=== PATIENT | female | born 1975 | race Caucasian/White ===

== ENCOUNTER → 2018-02-06 13:35 | Outpatient (CLI) | payer BC, SELFPAY ==
--- NOTE | 2018-02-06 13:41 | US_ITS ---
US thyroid HISTORY: Enlarged thyroid gland, dysphasia ITS.REASON: THROMEGLY ORDERING PHYSICIAN: Rosalina Cohen PATIENT AGE: 42 years Comparison: None FINDINGS: The right lobe is 4.4 x 1.3 x 1.2 cm with mostly homogeneous echogenicity. 4 x 2 mm hypoechoic nodule lower pole 3 x 2 mm hypoechoic nodule lower pole The left lobe is 3.9 x 1.3 x 1.5 cm. 3 x 3 mm hyperechoic nodule mid to lower region 3 mm hypoechoic nodule lower pole 3 mm hypoechoic nodule lower pole Unremarkable isthmus. IMPRESSION: Bilateral 4 mm or less thyroid nodules with low level of suspicion for malignancy with mild prominence of the thyroid gland. Consider 6 month follow-up to confirm stability
== END ==
PROVIDERS: Family Provider Family Medicine; PCP Nurse Practitioner; Visit Provider Nurse Practitioner
DX: E04.9 Nontoxic goiter, unspecified (principal)
CPT/HCPCS: 76536

== ENCOUNTER → 2018-09-20 08:14 | Outpatient (CLI) | payer BC, SELFPAY ==
--- NOTE | 2018-09-20 08:17 | US_ITS ---
US aorta HISTORY: Screening for aneurysm ITS.REASON: CHRONIC FATIGUE, PALPATATIONS, FHX CARDIAC DISORDER,AAA COMPARISON: FINDINGS No evidence of abdominal aortic aneurysm. Mid abdominal aorta measures up to 13 mm. Proximal common iliacs are unremarkable. IMPRESSION: No evidence of abdominal aortic aneurysm
--- NOTE | 2018-09-20 08:17 | US_ITS ---
US thyroid HISTORY: Follow-up thyroid nodules ITS.REASON: CHRONIC FATIGUE, PALPATATIONS, FHX CARDIAC DISORDER,AAA ORDERING PHYSICIAN: Rosalina Cohen APRN PATIENT AGE: 43 years Comparison: 02/06/2018 FINDINGS The right lobe is 3. #1.1 x 1.4 cm. A 3 mm hypoechoic nodule is present in the lower pole laterally unchanged. 2 mm hypoechoic nodule within the lower pole The left lobe is 4.2 x 1.1 x 1.3 cm. There are 2 hypoechoic nodules in the lower pole measuring 2 and 3 mm The isthmus has an unremarkable appearance. IMPRESSION: Small bilateral thyroid nodules with low level of suspicion for malignancy. Not significant change
--- NOTE | 2018-09-20 09:28 | CA_ITS ---
PROCEDURE: 2-D M-mode and color Doppler study INDICATIONS FOR THE TEST: Chest pain+ COPD Heart Murmur Tobacco Smoking Palpitations Fatigue+ Syncope Edema Hypertension Diabetes Mellitus Rheumatic Fever SOB DEVRIES Obesity Hyperlipidemia Family History HD Additional History PALP, FM HX ANEURYSM PATIENT INFORMATION HEIGHT: 63 WEIGHT:161 GENDER: Female B/P:118/70 2-D/M-MODE INTERPRETATION: 2-D MEASUREMENTS OBSERVED VALUES IN CMS Right Ventricular Dimension (RVDd) 2.3 Interventricular Septum (Thickness)(IVsd) 1.2 Left Ventricular Internal Dimensions(LVIDd) 3.9 Left Ventricular Posterior Wall (Thickness)(LVPWd) 1.0 Aortic Root 3.0 Aortic Cusp Separation 1.9 Left Atrial Dimensions (LAD) 3.1 2D 1. Left atrium is normal size, left ventricle is normal size, there is no concentric left ventricular hypertrophy, visually estimated ejection fraction 55% with no regional wall motion abnormality. 2. The right atrium and right ventricle are normal size and contractility. 3. The aortic, mitral and tricuspid valvular grossly normal. 4. The pulmonic valve is poorly visualized. 5. No significant pericardial effusion noted. DOPPLER INTERROGATION: Doppler interrogation of the aortic, mitral and tricuspid valvular presence of mild mitral and tricuspid regurgitation, tricuspid regurgitation jet velocity is inadequate for calculation of the right ventricular systolic pressure, diastolic parameters are within normal range. CONCLUSION: 1. Normal left ventricular size, preserved left ventricular systolic function, visually estimated ejection fraction 55% with no regional wall motion abnormality, diastolic parameters are within normal range. 2. Mild mitral and tricuspid regurgitation 3. No significant pericardial effusion noted.
== END ==
PROVIDERS: PCP Nurse Practitioner; Visit Provider Nurse Practitioner
DX: R00.2 Palpitations (principal); R53.82 Chronic fatigue, unspecified; E04.9 Nontoxic goiter, unspecified; I71.4 Abdominal aortic aneurysm, without rupture; Z82.49 Family history of ischemic heart disease and other diseases of the circulatory system
CPT/HCPCS: 76536; 76770; 93017; 93306

== ENCOUNTER → 2018-10-30 07:19 | Outpatient (CLI) | payer BC, SELFPAY ==
--- NOTE | 2018-10-30 09:16 | NM_ITS ---
CARDIOLITE SPECT MYOCARDIAL PERFUSION LEXISCAN, REST AND STRESS: History: Chest pain, shortness of breath, family history abnormal treadmill stress test Procedure: Patient exercised on Blair protocol 9 minutes, resting heart rate was 62 bpm resting blood pressure 144/79, with exercise maximum heart rate achieved was 1 71 bpm which is greater than 85% of the maximum predicted heart rate and a blood pressure was 170/80. Patient complained of chest pressure in a peak exercise which was relieved with rest. Patient has good exercise capacity achieved 10.1mets of workload on treadmill, the blood pressure response to exercise was adequate. Electrocardiogram: Resting electrocardiogram showed sinus rhythm, with exercise there is less than 1.[address] segment depression noted from the baseline EKG. The EKG portion of the exercise Myoview is negative for ischemia. Cardiac stress and resting SPECT images: Cardiac stress and rest SPECT images were obtained using technetium 99 Myoview 30.2 mCi stress and 10.2 mCi at rest. Gated SPECT further analysis of segmental wall motion and calculation of the ejection fraction also done. Cardiac stress and resting SPECT images show uniform myocardial activity without segmental perfusion abnormality, computer derived ejection fraction is 64% with no regional wall motion abnormality, right ventricle is normal size and contractility. Conclusion: 1. The EKG portion of the exercise Myoview is negative for ischemia, patient has good exercise capacity achieved 10.1mets of workload on treadmill, the blood pressure response to exercise was adequate, test was started shortness of breath patient also complained of chest pain with peak exercise which resolving the resting the recovery. 2. No scintigraphic evidence of reversible ischemia seen at this level of exercise, computer derived ejection fraction is 64% with no regional wall motion abnormality, right ventricle is normal size and contractility.
--- NOTE | 2018-10-30 09:19 | HMH.ITSHM ---
Current Home Medications as stated by this patient Елена Rasheed or patient intake representative. [] CONTROL
== END ==
PROVIDERS: PCP Nurse Practitioner; Visit Provider Internal Medicine
DX: R07.9 Chest pain, unspecified (principal); R53.83 Other fatigue; R94.31 Abnormal electrocardiogram [ECG] [EKG]
CPT/HCPCS: 78452; 93017; A9502

== ENCOUNTER 2020-04-27 10:13 | Emergency (ER) | payer BC, SELFPAY ==
[2020-04-27 10:15] VITALS: BP 143/88; PULSE 91; RESP 14; TEMP 36.7; O2SAT 100; BMI 24.3
--- NOTE | 2020-04-27 11:13 | HMH.EDUTC ---
[facility] [place] Disposition Clinical Impression: Close exposure to COVID-19 virus Disposition: Home, Self-Care Condition on Discharge: Good Instructions: DI for COVID-19 (Suspected or Confirmed ), Preventing the Spread of Coronavirus Discharge Instructions Additional Instructions: self isolate until test results are known if symptoms develop return or be seen by pcp Referrals: Rosalina Cohen APRN [Primary Care Provider] - Time of Disposition: 11:15 Medical Decision Making - Andre Inquiry Pt receiving controlled substance: No Vital Signs: 04/27/20 10:15 Temperature 98.0 F Temperature Source Oral Pulse Rate [Right Brachial] 91 H Respiratory Rate 14 Blood Pressure [Right Arm] 143/88 H Blood Pressure Mean [Right Arm] 106 Blood Pressure Source [Right Arm] Automatic Cuff Blood Pressure Position [Right Arm] Sitting 02 Sat by Pulse Oximetry 100 Oxygen Delivery Method Room Air Orders (Tests/Meds): ORDERS Category Date Time Status Covid-19 Nasal PCR ([facility]) Routine Lab 04/27/20 10:30 Received [facility] [place] HPI - General Chief complaint: Urgent Treatment Center Stated complaint: COVID EXPOSURE Time Seen by Provider: 04/27/20 11:13 Mode of Arrival: Ambulatory Source of Information: Patient Limitations: No Limitations Description of Symptoms (Recalled from Triage Doc. by RN): PATIENT REQUESTING COVID TEST D/T EXPOSURE; DENIES SYMPTOMS HEENT Symptoms (Recalled from RN notes): No Resp Symptoms (Recalled from RN notes): No Skin Symptoms (Recalled from RN notes): No MS Symptoms (Recalled from RN notes): No Functional Status (Recalled from RN notes): WNL - History of Present Illness Provider Complaint: 44 yr old female presents for covid test. pt states she was exposed but denies symptoms. - Related Data Previous Rx's Medication Instructions Recorded amoxicillin 500 mg capsule 500 mg PO Q12H 10 Days #20 cap 06/03/19 Allergies Allergy/AdvReac Type Severity Reaction Status Date / Time No Known Allergies Allergy Verified 06/03/19 10:36 - Worker's Comp Is this a Worker's Comp case?: No [facility] History - Hepatitis A Screen Drug use history?: No High risk sexual behaviors?: No History of sexually transmitted infection?: No Currently employed?: No Childcare worker?: No Do you have indoor plumbing?: Yes Do you have electricity?: Yes Attestation statement:: This patient has been screened for Hepatitis A risk factors. I have reviewed the patient's past medical history: Yes Medical History: Reports:: Gastroesophageal Reflux Disease(GERD) Denies:: Diabetes Mellitus Type 1, Diabetes Mellitus Type 2, Internal Pacemaker, Lung Disease, Seizures Other Medical History: Denies: Blood Transfusion Reaction Other Surgeries: Yes: No Previous Surgery, Other. No: Pacemaker - Social History Smoking Status: Never smoker Alcohol Intake: never Substance Use Type: denies use Occupational Status: other Housing: house Household Members: family Family Hx:: Cancer, Hypertension, Stroke, Coronary Artery Disease, Heart Attack Comment: Sister-[place]@50. Father-HTN. Mother-Cancer ROS Obtained: Yes Systems reviewed as appropriate & no additional complaints - Constitutional Constitutional: Reports system reviewed and no additional complaints, except as docu, Denies fever(s) - Eyes Eyes: Reports system reviewed and no additional complaints, except as docu, Denies blurry vision - ENT Ears, Nose, Mouth, and Throat: Reports system reviewed and no additional complaints, except as docu, Denies bleeding gums - Cardiovascular Cardiovascular: Reports system reviewed and no additional complaints, except as docu, Denies chest pain - Respiratory Respiratory: Yes system reviewed and no additional complaints, except as docu, No shortness of breath - Gastrointestinal Gastrointestingal: Reports: system reviewed and no additional complaints, except as docu. Denies: belching - Genitourinary Female Genitourinary: Reports system revi
[2020-04-27 11:17] VITALS: BP 143/88; PULSE 91; RESP 14; TEMP 36.7; O2SAT 100
--- NOTE | 2020-04-27 18:39 | PC.NURSE ---
patient notified of positive of covid results
== END 2020-04-27 11:20 | disposition home or self-care (01) ==
PROVIDERS: Emergency Provider Nurse Practitioner Family; PCP Nurse Practitioner
DX: U07.1 COVID-19 (principal); K21.9 Gastro-esophageal reflux disease without esophagitis
CPT/HCPCS: 99202; G0463; U0003

== ENCOUNTER → 2020-07-24 12:03 | Outpatient (CLI) | payer BC, SELFPAY | PROVIDERS: PCP Family Medicine; Visit Provider Nurse Practitioner Family | DX: Z20.822 Contact with and (suspected) exposure to COVID-19 (principal) | CPT/HCPCS: U0003 ==

== ENCOUNTER → 2020-09-30 08:02 | Outpatient (POV) | payer BC, SELFPAY | PROVIDERS: Visit Provider Dermatology | DX: Z00.00 Encounter for general adult medical examination without abnormal findings (principal) ==

== ENCOUNTER → 2022-02-09 08:07 | Outpatient (POV) | payer BC, SELFPAY | PROVIDERS: Visit Provider Dermatology | DX: Z00.00 Encounter for general adult medical examination without abnormal findings (principal) ==

== ENCOUNTER 2024-01-16 08:54 | Outpatient (CLI) | payer BC, SELFPAY ==
[2024-01-16 09:39] LABS: Basophils # 0.1 K/mm3 (0-0.2); Eosinophils # 0.1 K/mm3 (0.0-0.4); Hematocrit 45.3 % (37.0-47.0); Hemoglobin 14.8 g/dL (12.2-16.2); Lymphocytes # 1.7 K/mm3 (0.7-4.5); Lymphocytes % 29.7 % (10-50); Mean Corpuscular HGB Conc 32.6 g/dL (31.8-35.4); Mean Corpuscular Hemoglobin 29.8 pg (27.0-31.2); Mean Corpuscular Volume 91.5 fl (81-99); Mean Platelet Volume 7.9 fl (7.4-10.4); Monocytes # 0.3 K/mm3 (0.1-1.0); Monocytes % 5.3 % (1.7-9.3); Neutrophils # 3.7 K/mm3 (1.8-7.8); Neutrophils % 62.9 % (37.0-80.0); Platelet Count 283 K/mm3 (142-424); Red Blood Count 4.96 M/mm3 (4.20-5.40); Red Cell Distribution Width 13.4 % (11.5-17.5); White Blood Count 5.9 K/mm3 (4.8-10.8)
[2024-01-16 10:57] LABS: Albumin Level 4.4 g/dl (3.5-5.0); Chloride 108 mmol/L (98-107); Sodium 141 mmol/L (136-145)
[2024-01-16 10:58] LABS: Potassium 4.2 mmoL/L (3.5-5.1)
[2024-01-16 11:00] LABS: Alanine Aminotransferase 33 U/L (12-78); Albumin/Globulin Ratio 1.7 (1.1-1.8); Alkaline Phosphatase 65 U/L (38-126); Amylase 61 U/L (30-110); Anion Gap 9.2 mEq/L (5-15); Aspartate Amino Transferase 31 U/L (14-36); Bilirubin,Total 0.5 mg/dl (0.2-1.3); Blood Urea Nitrogen 16 mg/dl (7-17); Carbon Dioxide 28 mmol/L (22.0-30.0); Estimated Glomerular Filt Rate 67 ml/min (>60); GFR (African American) 82 ML/MIN (>60); Globulin 2.6 g/dL (1.3-3.2); Glucose 91 mg/dl (74-100); HDL Cholesterol 49 mg/dl (40-60); Lipase 191 U/L (23-300)
[2024-01-16 11:01] LABS: Chol/HDL Ratio 3.8 (1-3.5); Cholesterol 185 mg/dl (140-200); Triglycerides 120 mg/dl (30-150); VLDL Cholesterol 24 mg/dL (0-40)
[2024-01-16 12:00] LABS: 25-OH Vitamin D, Total 55.8 ng/mL (30-100)
[2024-01-16 12:01] LABS: Direct LDL Cholesterol 105.41 mg/dL (100-129)
[2024-01-16 12:18] LABS: Thyroid Stimulating Hormone 1.18 uIU/mL (0.465-4.68)
[2024-01-16 12:22] LABS: Ferritin 48.3 ng/ml (6.24-137)
[2024-01-16 12:37] LABS: Vitamin B12 565 pg/mL (239-931)
[2024-01-16 16:04] LABS: Hemoglobin A1C 5.3 % (4.0-6.0)
== END 2024-01-16 23:59 | disposition home or self-care (01) ==
LOC: LAB 08:56
PROVIDERS: PCP Internal Medicine Adolescent Medicine; Visit Provider Nurse Practitioner Family
DX: Z00.00 Encounter for general adult medical examination without abnormal findings (principal); R10.11 Right upper quadrant pain; R40.0 Somnolence
CPT/HCPCS: 36415; 80050; 80053; 80061; 82150; 82306; 82533; 82607; 82728; 83036; 83690; 84443; 85025

== ENCOUNTER 2024-01-24 07:16 | Outpatient (CLI) | payer BC, SELFPAY ==
--- NOTE | 2024-01-24 07:22 | US_ITS ---
FINAL REPORT CLINICAL HISTORY: RUG PAIN COMPARISON: None FINDINGS: Sonographic images of the right upper quadrant were obtained. The pancreas is partially obscured.The liver has an unremarkable appearance. A small amount of sludge is present in the gallbladder. There is no evidence of biliary ductal dilatation.The common duct measures 3 mm. Limited images of the right kidney are unremarkable. IMPRESSION: Small amount of sludge present in the gallbladder without evidence of biliary ductal dilatation. Reviewed, Interpreted and Dictated by Mason Colindres MD Transcribed by Alina Munoz Authenticated and [facility]
== END 2024-01-24 23:59 | disposition home or self-care (01) ==
PROVIDERS: PCP Nurse Practitioner Family; Visit Provider Nurse Practitioner Family
DX: R10.11 Right upper quadrant pain (principal)
CPT/HCPCS: 76705

== ENCOUNTER 2024-02-02 09:55 | Outpatient (CLI) | payer BC, SELFPAY ==
--- NOTE | 2024-02-02 09:58 | NM_ITS ---
FINAL REPORT CLINICAL HISTORY: SLUDGE IN GALLBLADDER 10:55 am 7.73 [facility]ci tc choletec 1.4 mcg of cck injected intolt ant no pain during cck COMPARISON: None FINDINGS: Sequential anterior projection images of the abdomen were obtained after the intravenous injection of 7.73 mCi technetium 99m Choletec. There is normal uptake of radiotracer by the liver. The bile ducts are visualized by 5 minutes. Gallbladder activity is seen by 5 minutes. Bowel activity is noted by 50 minutes. After 1 hour, 1.4 ?g of CCK was injected intravenously for calculation of gallbladder ejection fraction. The gallbladder ejection fraction is 95%, which is within normal limits. IMPRESSION: No evidence of cystic duct or bile duct obstruction. Normal gallbladder ejection fraction of 95%. Reviewed, Interpreted and Dictated by Bari Quinones III, MD Transcribed by Alina Munoz Authenticated and [facility]
[2024-02-02] MEDS: SODIUM CHLORIDE 0.9% 10ML SYR (RAD ONLY) 10 ML IV (12:47)
[2024-02-02] MEDS: ISOTOPE CHOLETECH;1 DOSE (UP TO 15 MCI) IV (12:47)
[2024-02-02] MEDS: SINCALIDE 1.4 MCG in 0.9 % SODIUM CHLORIDE 50 ML 100 MCG IV (12:47)
== END 2024-02-02 23:59 | disposition home or self-care (01) ==
PROVIDERS: PCP Nurse Practitioner Family; Visit Provider Nurse Practitioner Family
DX: K82.8 Other specified diseases of gallbladder (principal); R10.11 Right upper quadrant pain
CPT/HCPCS: 78227; A9537; J2805

== ENCOUNTER → 2024-03-29 09:37 | Outpatient (CLI) | payer BC, SELFPAY | LOC: SL 09:38 | PROVIDERS: PCP Nurse Practitioner Family; Visit Provider Nurse Practitioner Family | DX: G47.33 Obstructive sleep apnea (adult) (pediatric) (principal); R06.83 Snoring; R53.83 Other fatigue; G47.10 Hypersomnia, unspecified | CPT/HCPCS: G0399 ==

== ENCOUNTER 2024-06-21 11:37 | Outpatient (CLI) | payer BC, SELFPAY ==
[2024-06-21 13:57] VITALS: BMI 29.2
== END 2024-06-21 23:59 | disposition home or self-care (01) ==
LOC: DIETICIAN 11:38
PROVIDERS: PCP Nurse Practitioner Family; Visit Provider Nurse Practitioner Family
DX: K21.9 Gastro-esophageal reflux disease without esophagitis (principal)
CPT/HCPCS: 97802

== ENCOUNTER 2025-02-15 07:09 | Outpatient (CLI) | payer BC, SELFPAY ==
[2025-02-15 07:39] LABS: Hematocrit 44.1 % (37.0-47.0); Hemoglobin 14.6 g/dL (12.2-16.2); Immature Granulocytes % 0.3 %; Mean Corpuscular HGB Conc 33.1 g/dL (31.8-35.4); Mean Corpuscular Hemoglobin 28.7 pg (27.0-31.2); Mean Corpuscular Volume 86.6 fl (81-99); Nucleated Red Blood Cells % 0 %; Platelet Count 276 K/mm3 (142-424); Red Blood Count 5.09 M/mm3 (4.20-5.40); Red Cell Distribution Width-SD 39.5 fL; White Blood Count 7.2 K/mm3 (4.8-10.8)
[2025-02-15 08:03] LABS: Albumin Level 4.4 g/dl (3.5-5.0); Chloride 102 mmol/L (98-107); Sodium 139 mmol/L (136-145)
[2025-02-15 08:04] LABS: Potassium 4.1 mmoL/L (3.5-5.1)
[2025-02-15 08:06] LABS: Alanine Aminotransferase 44 U/L (12-78); Albumin/Globulin Ratio 1.3 (1.1-1.8); Alkaline Phosphatase 89 U/L (38-126); Anion Gap 10.1 mEq/L (5-15); Aspartate Amino Transferase 42 U/L (14-36); Bilirubin,Total 0.4 mg/dl (0.2-1.3); Blood Urea Nitrogen 22 mg/dl (7-17); Carbon Dioxide 31 mmol/L (22.0-30.0); Cholesterol 195 mg/dl (140-200); Creatinine,Serum 0.90 mg/dl (0.52-1.04); Estimated Glomerular Filt Rate 67 ml/min (>60); GFR (African American) 81 ML/MIN (>60); Globulin 3.3 g/dL (1.3-3.2); Total Protein,Serum 7.7 g/dl (6.3-8.2); Triglycerides 104 mg/dl (30-150)
[2025-02-15 08:07] LABS: Calcium 9.4 mg/dl (8.4-10.2); Glucose 97 mg/dl (74-100); HDL Cholesterol 57 mg/dl (40-60)
[2025-02-15 08:36] LABS: Thyroid Stimulating Hormone 1.62 uIU/mL (0.465-4.68)
[2025-02-15 11:29] LABS: 25-OH Vitamin D, Total 46.6 ng/mL (30-100)
== END 2025-02-15 23:59 | disposition home or self-care (01) ==
LOC: LAB 07:11
PROVIDERS: PCP Nurse Practitioner Family; Visit Provider Nurse Practitioner Adult Health
DX: Z00.00 Encounter for general adult medical examination without abnormal findings (principal); E55.9 Vitamin D deficiency, unspecified; R53.83 Other fatigue
CPT/HCPCS: 36415; 80053; 80061; 82306; 84443; 85025

== ENCOUNTER 2025-04-05 08:13 | Outpatient (CLI) | payer BC, SELFPAY ==
--- NOTE | 2025-04-05 08:16 | US_ITS ---
FINAL REPORT CLINICAL HISTORY: RUQ PAIN COMPARISON: None FINDINGS: Sonographic images of the right upper quadrant were obtained. The pancreas is partially obscured.The liver has an unremarkable appearance. The gallbladder is present with a small stone in the neck of the gallbladder. There is no evidence of biliary ductal dilatation.The common duct measures 3 mm. Limited images of the right kidney are unremarkable. IMPRESSION: Small gallstone neck of the gallbladder. Reviewed, Interpreted and Dictated by Mason Colindres MD Transcribed by Benita Kenny Authenticated and [facility]
== END 2025-04-05 23:59 | disposition home or self-care (01) ==
LOC: RAD 08:14
PROVIDERS: PCP Nurse Practitioner Family; Visit Provider Nurse Practitioner Family
DX: K80.20 Calculus of gallbladder without cholecystitis without obstruction (principal)
CPT/HCPCS: 76705